=== PATIENT | female | born 1990 | race Caucasian/White ===

== ENCOUNTER 2023-03-03 13:10 | Emergency (ER) | payer OTHER, SELFPAY ==
--- NOTE | ~2023-03-03 | XR_ITS ---
EXAMINATION: XR chest 1V 03/03/2023 16:00 INDICATION: Dyspnea with shortness of breath PROCEDURE: AP view of the chest COMPARISON: No prior studies for comparison. FINDINGS: The lungs are clear. The cardiomediastinal silhouette is within normal limits. There are no pleural effusions. There is no pneumothorax suspected. IMPRESSION: 1: NO ACUTE CARDIOPULMONARY DISEASE. Reviewed, dictated and finalized at location L.
--- NOTE | ~2023-03-03 | CT_ITS ---
EXAMINATION: CT brain wo con DATE: 03/03/2023 15:52 INDICATION: headache . TECHNIQUE: Computed tomography (CT) of the head was performed without intravenous contrast. The mA wa s adjusted according to patient size. Iterative reconstruction technique was employed. The dose-lengt h product was 605.33 mGy-cm. COMPARISON: None. FINDINGS: No acute intracranial hemorrhage or extra-axial fluid collection. No hydrocephalus, mass, or herniation. No acute ischemic infarct. Unremarkable dural venous sinus attenuation. No acute osseous abnormality. The aerated spaces are clear. IMPRESSION: No acute intracranial process. Reviewed, dictated and finalized at location K.
[2023-03-03 13:15] VITALS: BP 173/89; PULSE 107; RESP 20; TEMP 37.7; O2SAT 98
[2023-03-03 13:33] LABS: Basophils Percent Auto 0.3 % (0.2-1.2); Eosinophils Absolute Auto 0.1 K/mm3 (0-0.3); Eosinophils Percent Auto 0.9 % (0-4.4); Hemoglobin 13.2 g/dL (12.0-15.0); Immature Granulocyte Absolute 0.04 K/mm3 (0.00-0.031); Immature Granulocyte Percent A 0.5 % (0-0.5); Lymphocytes Absolute Auto 0.48 K/mm3 (0.9-3.2); Lymphocytes Percent Auto 5.6 % (18.3-44.2); Mean Corpuscular Hemoglobin 29.4 pg (26-34); Mean Corpuscular Volume 89.1 fl (80-100); Mean Platelet Volume 10.8 fl (7.4-10.4); Monocytes Absolute Auto 0.6 K/mm3 (0.1-0.6); Monocytes Percent Auto 6.8 % (2.6-8.5); Neutrophils Absolute Auto 7.4 K/mm3 (1.3-6.7); Neutrophils Percent Auto 85.9 % (45.5-73.1); Platelet Count Result 264 k/mm3 (150-375); Red Blood Count 4.49 M/mm3 (4.2-5.4); Red Cell Distribution Width 13.1 % (11.5-14.5); White Blood Count 8.6 K/mm3 (4.5-10.0)
[2023-03-03 13:44] LABS: Alanine Aminotransferase 37 U/L (6-35); Albumin Level 4.3 g/dL (3.5-5.1); Alkaline Phosphatase 161 U/L (38-126); Anion Gap 6 mmol/L (8-16); Aspartate Amino Transferase 34 U/L (14-36); Bilirubin,Total 0.3 mg/dL (0.2-1.3); Blood Urea Nitrogen 9 mg/dL (7-17); Calcium 8.2 mg/dL (8.4-10.2); Carbon Dioxide 27 mmol/L (22-30); Chloride 102 mmol/L (98-107); Estimated CRCL calculation 164 ml/min; Estimated Glomerular Filt Rate > 60; Glucose 102 mg/dL (65-110); Lipase 78 U/L (23-300); Potassium 3.6 mmol/L (3.4-5.0); Sodium 135 mmol/L (137-145)
[2023-03-03 14:55] LABS: Appearance Urine Clear (Clear); Bacteria Urine None Seen /hpf; Bilirubin Urine Negative (Negative); Blood Urine 3+ (Negative); Color Urine Yellow (Yellow); Glucose Urine UA Negative (Negative); Ketones Urine Negative (Negative); Leukocyte Esterase Ur Negative LEU/UL (Negative); Nitrate Urine Negative (Negative); Non Pathogenic Casts 0-2; Protein Urine Negative (Negative); Specific Grav Ur 1.017 (1.001-1.035); Squamous Epithelial Cell Urine None seen /hpf (Few); Urobilinogen Urine 0.2 mg/dL (<2.0); WBC Urine 0-5 /hpf
[2023-03-03 14:59] LABS: Add Urine Microscopic? YES
--- NOTE | 2023-03-03 15:14 | ECG_ITS ---
Measurements Intervals [place] Rate: 90 P: 4 DE: 147 QRS: 7 QRSD: 84 T: 4 QT: 354 QTc: 435 Interpretive Statements SINUS RHYTHM LOW QRS VOLTAGE IN PRECORDIAL LEADS [QRS DEFLECTION < 1.0 mV IN CHEST LEADS] MINIMAL VOLTAGE CRITERIA FOR LVH, CONSIDER NORMAL VARIANT [MEETS CRITERIA IN ONE OF: R(aVL), S(V1), R(V5), R(V5/V6)+S(V1)] NO PREVIOUS ECG AVAILABLE FOR COMPARISON Electronically Signed On 03-03-2023 16:25:52 CDT by Emani Trimble M.D.
--- NOTE | 2023-03-03 15:18 | ED.NAVMDI ---
HPI - Nausea/Vomiting/Diarrhea General Chief complaint: Nausea/Vomiting/Diarrhea Stated complaint: body aches, fever Time Seen by Provider: 03/03/23 14:23 History of Present Illness HPI Narrative: 32-year-old female reports for multiple complaints that started today including nausea, generalized body aches and pains, tension type headache, vertigo and shortness of breath. Patient states over the weekend, she was at a festival and walk 30-40,000 steps per day. States she believes she is dehydrated which is causing her symptoms. She went to bed last night feeling normal, then woke up today with symptoms. States her headache is in her temples and behind her eyes, rates the pain 9/10 with associated photophobia and phonophobia. Patient reports sensation of the room spinning, worse with quick movements of her head and resolution when she sits still. Patient states she had her vitals taken while at work which showed an elevated blood pressure of 140 systolic and temperature of 103. She took 1 baby aspirin, went to urgent care and was advised to come to the ER for further evaluation. She denies emesis, diarrhea, hematochezia or melena, dysuria or urinary complaints, abdominal pain, chest pain, vision changes, ear pain, nuchal rigidity, back pain, cough or congestion, vision changes or focal numbness or weakness. Last bowel movement yesterday was normal. She is ambulating without difficulty. She is currently on her period. Related Data Allergies Allergy/AdvReac Type Severity Reaction Status Date / Time Sulfa (Sulfonamide Allergy Rash Verified 03/03/23 14:26 Antibiotics) tuberculin,PPD,multi-puncture AdvReac Swelling Verified 03/03/23 14:26 Review of Systems Review of Systems: CONSTITUTIONAL: See HPI EYES: Denies visual changes, redness, or discharge. ENT: Denies rhinorrhea, congestion, sore throat, or otalgia. CARDIOVASCULAR: Denies chest pain, palpitations, or edema. RESPIRATORY: Denies cough or dyspnea. GASTROINTESTINAL: See HPI GENITOURINARY: Denies dysuria or hematuria. SKIN: Denies rash or itching. MUSCULOSKELETAL: See HPI NEUROLOGIC: See HPI PSYCHIATRIC: Denies anxiety or depression. Exam Narrative: GENERAL: Well-appearing, in no acute distress. Patient resting, when examined. She is pleasant and conversational. HEAD: Normocephalic EYES: PERRLA, EOMI. No nystagmus appreciated. ENT: Nares clear. Mucous membranes moist. Oropharynx without tonsillar hypertrophy exudate or other lesions. Bilateral TMs are christine and nonbulging without effusions NECK: Supple. No midline cervical spinous tenderness, step-offs or deformities. No nuchal rigidity. CHEST: No respiratory distress. Clear to auscultation, no adventitious breath sounds. HEART: Regular rate and rhythm. No murmur heard. Normal peripheral pulses. ABDOMEN: Soft, nontender, normal active bowel sounds. No CVA tenderness. EXTREMITIES: Normal range of motion. No edema. SKIN: Warm, dry, no rash. NEURO: No focal deficits. Alert and oriented x3. Cranial nerves II through XII intact. Strength 5/5 in BUE and BLE. Sensation intact throughout. PSYCH: Normal mood and affect. Course Vital Signs Vital signs: Vital Signs Temperature 99.8 F H 03/03/23 13:15 Pulse Rate 107 H 03/03/23 13:15 Respiratory Rate 20 03/03/23 13:15 Blood Pressure 173/89 H 03/03/23 13:15 Pulse Oximetry 98 03/03/23 13:15 Oxygen Delivery Room Air 03/03/23 13:15 Temperature 99.1 F 03/03/23 17:00 Pulse Rate 92 03/03/23 17:00 Respiratory Rate 16 03/03/23 17:00 Blood Pressure 136/75 03/03/23 17:00 Pulse Oximetry 99 03/03/23 17:00 Oxygen Delivery Room Air 03/03/23 13:15 MDM - Nausea/Vomiting/Diarrhea MDM Narrative Medical decision making narrative: 32-year-old female reports for multiple complaints that started today including nausea, generalized body aches and pains, tension type headache, vertigo and shortness of breath. Patient is well-appearing
[2023-03-03] MEDS: ONDANSETRON INJ 4 MG/2 ML VIAL IV PUSH (15:34)
[2023-03-03] MEDS: SODIUM CHLORIDE 0.9% IV 1,000 ML 999 ML IV CONT (15:34)
[2023-03-03] MEDS: PROCHLORPERAZINE EDISYLATE 10 MG/2 ML VIAL IV PUSH (15:34)
[2023-03-03] MEDS: ACETAMINOPHEN 500 MG TABLET 1000 MG PO (15:34)
[2023-03-03] MEDS: MECLIZINE HCL 25 MG TABLET PO (15:35)
[2023-03-03 16:04] LABS: Creatine Kinase 111 U/L (30-135)
[2023-03-03 16:15] LABS: NT Pro B Type Natriuretic Pept 118 pg/mL (19.9-100); Troponin I < 0.012 ng/mL (0.000-0.034)
[2023-03-03] MEDS: KETOROLAC 30 MG/ML VIAL (*BKC) IV PUSH (16:48)
[2023-03-03 17:00] VITALS: BP 136/75; PULSE 92; RESP 16; TEMP 37.3; O2SAT 99
[2023-03-03 17:00] LABS: Influenza A QL RT-PCR Negative (Negative); Influenza B QL RT-PCR Negative (Negative); SARS-CoV-2 RNA PCR Positive (Negative)
[2023-03-03 17:08] LABS: D Dimer 0.39 ug/mL (<0.48)
== END 2023-03-03 18:32 | disposition home or self-care (01) ==
PROVIDERS: Emergency Medicine; Emergency Provider Physician Assistant
DX: U07.1 COVID-19 (principal)
CPT/HCPCS: 36415; 70450; 71045; 80053; 81001; 81025; 82550; 83690; 83880; 84484; 85025; 85380; 87636; 93005; 96361; 96374; 96375; 99284; A9270; J0780; J1885; J2405; J7030

== ENCOUNTER 2024-03-24 14:56 | Outpatient (CLI) | payer OTHER, SELFPAY ==
--- NOTE | ~2024-03-24 | MR_ITS ---
EXAMINATION: MR cervical spine wo con DATE: 03/24/2024 15:37 INDICATION: Cervical radiculopathy. Neck pain. TECHNIQUE: Magnetic resonance imaging (MRI) of the cervical spine was performed without intravenous c ontrast. COMPARISON: None FINDINGS: There is mild kyphosis of cervical spine. Vertebral body heights are normal. Intervertebral disc heights are normal. The spinal cord signal intensity is normal. The following disc levels are s pecifically discussed: C2-C3: The disc does not extend beyond the endplate margin. There is no uncovertebral joint osteoarth ritis. There is moderate right facet joint osteoarthritis. There is no neural foraminal stenosis. The re is no central canal stenosis. C3-C4: There is a central extrusion. There is no uncovertebral joint osteoarthritis. There is no face t joint osteoarthritis. There is no neural foraminal stenosis. There is mild central canal stenosis. C4-C5: The disc does not extend beyond the endplate margin. There is no uncovertebral joint osteoarth ritis. There is mild bilateral facet joint osteoarthritis. There is no neural foraminal stenosis. The re is no central canal stenosis. C5-C6: There is a central protrusion with annular fissure. There is mild left uncovertebral joint ost eoarthritis. There is mild left facet joint osteoarthritis. There is mild left neural foraminal steno sis. There is mild central canal stenosis. C6-C7: There is a central protrusion. There is mild left uncovertebral joint osteoarthritis. There is no facet joint osteoarthritis. There is no neural foraminal stenosis. There is mild central canal st enosis. C7-T1: The disc does not extend beyond the endplate margin. There is no uncovertebral joint osteoarth ritis. There is severe right and mild left facet joint osteoarthritis. There is mild right neural for aminal stenosis. There is no central canal stenosis. IMPRESSION: 1. Mild cervical spondylosis. Reviewed, dictated and finalized at location E.
== END 2024-03-24 14:57 ==
DX: M47.22 Other spondylosis with radiculopathy, cervical region (principal)
CPT/HCPCS: 72141